=== PATIENT | female | born 1995 | race Caucasian/White ===

== ENCOUNTER 2017-06-25 06:08 | Inpatient (IN) ==
[2017-06-25] MEDS ORDERED: MEPERIDINE 50 MG/1 ML VIAL IV PRN (06:18)
[2017-06-25] MEDS ORDERED: ONDANSETRON 4 MG/2 ML VIAL IV PRN (06:18)
[2017-06-25] MEDS ORDERED: LACTATED RINGERS 1,000 ML IV PRN (06:18)
[2017-06-25] MEDS ORDERED: OXYTOCIN/LR 20 UNIT/1,000 ML BAG IV SCH (06:30)
[2017-06-25 06:50] LABS: Basophils % 0.3 % (0.0-0.8); Eosinophils # 0.1 10*3/uL (0.0-0.87); Eosinophils % 0.9 % (0.00-10.9); Hematocrit 39.2 VOL% (35.7-47.0); Hemoglobin 13.5 GM/DL (12.0-16.0); Immature Granulocytes % 0.8 %; Immature Granulocytes Absolute 0.11 #; Lymphocytes # 2.5 10*3/uL (1.4-4.0); Mean Corpuscular HGB Conc 34.4 GM/DL (32-36); Mean Corpuscular Hemoglobin 30 PG (27-34); Mean Corpuscular Volume 87.1 FL (87-102); Mean Platelet Volume 10.9 FL (9.6-12.0); Monocytes # 0.6 10*3/uL (0.11-0.8); Monocytes % 4.5 % (1.7-12.7); Neutrophils # 10.4 10*3/uL (1.4-7.4); Neutrophils % 75.5 % (38.7-73.9); Platelet Count 235 T/CUMM (130-400); Red Cell Distribution Width 13.5 % (9.3-17.3); White Blood Count 13.8 T/CUMM (4-12)
[2017-06-25 07:18] LABS: Alanine Aminotransferase 11 U/L (13-56); Albumin 2.6 G/DL (3.4-5.0); Alkaline Phosphatase 134 U/L (45-117); Aspartate Amino Transferase 7 U/L (0-37); Bilirubin,Total < 0.39 MG/DL (0.2-1.0); Calcium 8.8 MG/DL (8.5-10.1); Total Protein 6.2 G/DL (6.4-8.3)
[2017-06-25 07:19] LABS: Blood Urea Nitrogen 8 MG/DL (7-18); Glucose 115 MG/DL (74-106); Osmolality,Calculated 271.8 MOS/KG (273-304); Sodium 137 MMOL/L (136-145); Uric Acid 3.5 MG/DL (2.6-6.0)
[2017-06-25] MEDS ORDERED: diphenhydrAMINE 50 MG/1 ML VIAL IV PRN (07:30)
[2017-06-25] MEDS ORDERED: FAMOTIDINE 20 MG/2 ML VIAL IV ONE (07:30)
[2017-06-25] MEDS ORDERED: CITRIC ACID/SODIUM CITRATE 30 ML UDCUP PO ONE (07:30)
[2017-06-25] MEDS ORDERED: fentaNYL 2 MCG/ROPIV 0.2% EPID 150 ML EPIDURAL SCH (07:30)
[2017-06-25] MEDS ORDERED: hydrOXYzine HCL 25 MG/1 ML VIAL IM PRN (07:30)
[2017-06-25] MEDS ORDERED: ePHEDrine 50 MG/ML AMP IV PRN (07:30)
[2017-06-25] MEDS ORDERED: PROMETHAZINE 25 MG/1 ML VIAL IM ONE (07:30)
[2017-06-25] MEDS ORDERED: AMPICILLIN INJ 2,000 MG in SODIUM CHLORIDE 0.9% 100 ML IV ONE (07:59)
[2017-06-25] MEDS: LACTATED RINGERS 1,000 ML IV SCH (09:24)
--- NOTE | 2017-06-25 09:37 | OB/GYN History & Physical ---
History of Present Illness Chief complaint: In for elective induction of labor due to term . History of present illness: Ms. Garsia is a 22 year old female who is a 2 para 1 living 1. Her LIZABETH is [birth year]2017 for an estimated gestational age of 39 weeks and 1 day. The patient presents for elective induction of labor due to term . The risk and benefits of been thoroughly discussed with this patient and significant other, plan of care has been discussed with Dr. Rolle, all parties are in agreement plan. The patient received her care at the [facility] and she received routine care, her course was uneventful. She had a previous vaginal delivery of a liveborn infant that weighed 7 pounds and 13 ounces and she reported no complications with that . labs: She is O-, she did receive RhoGam, rubella is immune, hepatitis B negative, HIV negative, RPR is nonreactive, and GBS culture status unknown. Review of systems is negative with exception of above. Home Medications Medication Instructions Recorded Confirmed Type No122/Iron/Folic Acid 1 tablet PO DAILY 04/30/16 06/25/17 History [ Multi Tablet] Allergies Allergy/AdvReac Type Severity Reaction Status Date / Time No Known Allergies Allergy Verified 06/10/17 12:52 12 point system: reviewed and no additional remarkable complaints except as stated Medical,Surgical,& Family Hx - Medical History Medical History: noncontributory Musculoskeletal: No history of: Amputation Reproductive: No history of: Ectopic , Complication - Surgical History Surgical History: noncontributory HEENT Surgeries: Patient denies: Eye Surgery, Tonsilectomy & Adenoidectomy - Family History Family History: Reports;: Family Hypertension (mother), Family Stroke (MGF) Denies;: Family Anesthesia Reaction, Family Cancer, Family Diabetes, Family Heart Disease, Family Psychiatric Problems - Social History Smoking Status: Never smoker Frequency of Alcohol Use: None Type of Drug Use: None Marital Status: Single Lives With:: Significant Other Functional capacity: independent ambulation Exam PACKAGING ASSEMBLER - Constitutional General appearance: no acute distress - Antepartum / Post Antepartum Exam Cervix - Dilatation: 4 cm Effacement: 70% Station: -2 Rupture: Intact Presentation: Vertex Heart Rate: 140s Breast: bilateral: normal Abdomen obstetrics: Present: bowel sounds normal Vulva: bilateral: normal Vagina: Present: normal moisture, discharge Uterus exam: Present: enlarged Anus/Rectum: Present: normal perianal skin - Respiratory Respiratory exam: Present: clear to auscultation bilaterally - Cardiovascular Cardiovascular exam: Present: regular rate and rhythm - GI/Abdominal GI/Abdominal exam: Present: normal bowel sounds, soft - Extremities Exam Extremities exam: Present: normal inspection - Back Exam Back exam: Present: normal inspection - Neurological Exam Neurological exam: Present: alert, oriented X3 - Psychiatric Psychiatric exam: Present: normal affect, normal mood - Skin Skin exam: Present: normal color, warm Assessment and Plan (1) 39 weeks gestation of Status: Acute Assessment and plan: Admit IV fluids IV Pitocin per protocol Artificial rupture membranes when appropriate Internal monitors if indicated Epidural anesthesia if desired IV antibiotics prophylactically for unknown GBS status Anticipate Current Visit: Yes Results - Labs CBC & BMP: 06/25/17 06:36 06/25/17 06:36
[2017-06-25] MEDS ORDERED: LIDOCAINE 1% 50 ML VIAL ONE (15:26)
[2017-06-25] MEDS ORDERED: miSOPROStol 200 MCG TABLET ONE (15:26)
--- NOTE | 2017-06-25 16:16 | Event Note ---
HPI: Ms. Garsia presented to the labor department for elective induction of labor due to term . The risk and benefits were thoroughly discussed with the patient and significant other, plan of care discussed with Dr. Rolle and all parties were in agreement plan. Stage I: The patient was admitted she received IV fluids and IV Pitocin per protocol. Artificial rupture membranes was performed with clear fluid noted. An FSE was inserted for monitoring. The patient had a CAT 1 tracing with a few episodes of a CAT 2 tracing which was correct with oxygenation and position change. She received an epidural for pain control. Otherwise she had an uneventful course of labor. Stage II: The patient was complete and complained of pressure and desire to push. She pushed for approximately 15 minutes after which time the infant's head was delivered. The mouth nose suctioned on the perineum and nuchal cord 1 was noted and reduced. The remainder the infant was delivered at 1542, a viable female was noted. Apgars were 9 at 1 minute and 9 at 5 minutes. weight was 7 pounds. The infant was placed on the mom's abdomen for skin to skin bonding. A cord pH was obtained and sent to the lab. Stage III: A spontaneous delivery of a Marie placenta 1545. The placenta was further examined and appeared to be grossly intact. The vagina cervix inspected with no tears or lacerations noted. Estimated blood loss was approximately 150 cc. At the time of dictation mother and baby are in stable condition.
[2017-06-25] MEDS ORDERED: BENZOCAINE 20%/MENTHOL 0.5% SPRAY 56 GM CAN TOP PRN (18:10)
[2017-06-25] MEDS ORDERED: MEASLES/MUMPS/RUBELLA VACCINE 0.5 ML VIAL SUBCUT ONE (18:10)
[2017-06-25] MEDS ORDERED: DIPH/TET/ACEL PERT BOOSTER VACCINE 0.5 ML VIAL IM ONE (18:10)
[2017-06-25] MEDS ORDERED: LANOLIN 50% CREAM 0.3 OZ TUBE TOP PRN (18:10)
[2017-06-25] MEDS ORDERED: BISACODYL 10 MG SUPP RECTAL PRN (18:10)
[2017-06-25] MEDS ORDERED: oxyCODONE/ACETAMINOPHEN 5-325 MG TABLET PO PRN (18:10)
[2017-06-25] MEDS ORDERED: RHO(D) IMMUNE GLOBULIN 300 MCG SYRINGE IM ONE (18:10)
[2017-06-25] MEDS ORDERED: WITCH HAZEL PADS 100/JAR TOP PRN (18:10)
[2017-06-25] MEDS ORDERED: HYDROCORTISONE 2.5% RECTAL CREAM 30 GM TUBE TOP PRN (18:10)
[2017-06-25] MEDS ORDERED: ACETAMINOPHEN 325 MG TABLET PO PRN (18:10)
[2017-06-25] MEDS: IBUPROFEN 800 MG TABLET PO PRN (18:36)
--- NOTE | 2017-06-25 18:51 | Anesthesia Post-Op ---
Anesthesia Post OP - Post Ansesthetic Evaluation Patient seen in post op: Yes Resp: within normal limits CV: within normal limits Mental: within normal limits Temp: within normal limits [id number]: within normal limits Nausea and Vomiting: within normal limits Pain: within normal limits
[2017-06-25] MEDS: DOCUSATE SODIUM 100 MG CAPSULE PO SCH (21:45)
[2017-06-26] MEDS: IBUPROFEN 800 MG TABLET PO PRN ×2 (01:29→17:18)
[2017-06-26] MEDS: ACETAMINOPHEN/CODEINE 300-30 MG TABLET PO PRN (05:16)
[2017-06-26 06:49] LABS: Basophils # 0.1 10*3/uL (0.0-0.2); Basophils % 0.4 % (0.0-0.8); Eosinophils # 0.2 10*3/uL (0.0-0.87); Eosinophils % 1.2 % (0.00-10.9); Hematocrit 35.1 VOL% (35.7-47.0); Hemoglobin 12.4 GM/DL (12.0-16.0); Immature Granulocytes % 0.6 %; Immature Granulocytes Absolute 0.08 #; Lymphocytes # 2.6 10*3/uL (1.4-4.0); Lymphocytes % 19.1 % (21.3-54.2); Mean Corpuscular HGB Conc 35.3 GM/DL (32-36); Mean Corpuscular Hemoglobin 31 PG (27-34); Mean Platelet Volume 10.9 FL (9.6-12.0); Monocytes % 7.1 % (1.7-12.7); Neutrophils # 9.8 10*3/uL (1.4-7.4); Neutrophils % 71.6 % (38.7-73.9); Platelet Count 204 T/CUMM (130-400); Red Blood Count 3.99 MC/CUMM (3.8-5.5); Red Cell Distribution Width 13.7 % (9.3-17.3); White Blood Count 13.7 T/CUMM (4-12)
[2017-06-26] MEDS: DOCUSATE SODIUM 100 MG CAPSULE PO SCH ×2 (08:58→20:43)
--- NOTE | 2017-06-26 09:38 | OB/GYN Progress Note ---
Assessment and Plan (1) 39 weeks gestation of Status: Acute Assessment and plan: Admit IV fluids IV Pitocin per protocol Artificial rupture membranes when appropriate Internal monitors if indicated Epidural anesthesia if desired IV antibiotics prophylactically for unknown GBS status Anticipate Current Visit: Yes (2) Vaginal delivery Status: Acute Assessment and plan: Initiate routine orders. 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 Bonding well with infant. 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 Vitals: Vital Signs Temp Pulse Resp BP Pulse Ox 06/26/17 07:23 96.5 F L 72 18 119/82 97 06/26/17 06:46 20 06/26/17 06:00 20 06/26/17 04:00 97.2 F L 76 18 134/97 99 06/26/17 03:00 20 06/26/17 02:00 20 06/26/17 01:00 20 06/26/17 00:00 97.3 F L 77 18 124/75 100 06/25/17 22:00 20 06/25/17 20:00 98.3 F 81 18 145/92 99 06/25/17 18:15 97.2 F L 88 20 142/80 99 General appearance: no acute distress - Antepartum / Post Post Exam Breast: bilateral: normal Abdomen obstetrics: Present: bowel sounds normal Vagina: Present: normal moisture, discharge (Light lochia rubra) Uterus exam: Present: enlarged (Fundus firm midline) Anus/Rectum: Present: normal perianal skin - Head Head exam: Present: normal inspection - Respiratory Respiratory exam: Present: clear to auscultation bilaterally - Cardiovascular Cardiovascular exam: Present: regular rate and rhythm - GI/Abdominal GI/Abdominal exam: Present: normal bowel sounds, soft - Extremities Exam Extremities exam: Present: normal inspection - Neurological Exam Neurological exam: Present: alert, oriented X3 - Psychiatric Psychiatric exam: Present: normal affect, normal mood - Skin Skin exam: Present: normal color, warm Results - Labs CBC & BMP: 06/26/17 06:40 06/25/17 06:36
[2017-06-26] MEDS: oxyCODONE/ACETAMINOPHEN 5-325 MG TABLET PO PRN (17:18)
[2017-06-26] MEDS: LACTATED RINGERS 1,000 ML IV SCH (20:52)
[2017-06-27] MEDS: oxyCODONE/ACETAMINOPHEN 5-325 MG TABLET PO PRN (02:00)
[2017-06-27] MEDS: IBUPROFEN 800 MG TABLET PO PRN ×2 (02:02→10:23)
[2017-06-27] MEDS: DOCUSATE SODIUM 100 MG CAPSULE PO SCH (08:23)
[2017-06-27 08:37] VITALS: BP 128/74
[2017-06-27] MEDS: ACETAMINOPHEN/CODEINE 300-30 MG TABLET PO PRN (10:23)
--- NOTE | 2017-06-27 11:11 | Discharge Summary ---
Hospital Course - Hospital Course Hospital Course: Status post vaginal . Patient had 2 days in the hospital without any complications. Mother stable. Physical exam is unremarkable abdomen soft uterus is nontender firm, extremities are well within normal limits. Patient will be discharged follow-up our office approximately 6 weeks Specialty Discharge - Follow Up or Referrals Follow up with: Princess Rolle MD [Physician] - 07/31/17 10:00 am Discharge Plan - Discharge Data Condition at Discharge: Stable Discharge Diet: advance to your usual diet Activity: resume usual activities as tolerated Hygiene: may shower Weight Bearing at Discharge: weight bear as tolerated Driving: no restrictions Contact your physician if you experience:: fever over 101, Bleeding - Discharge Medications New Ibuprofen Tab [Motrin Tab] 800 mg PO Q6H PRN #30 tablet PRN Reason: Pain Moderate (4-7) Acetamin/Codeine 300-30 Tab [Tylenol/Codeine #3] 2 tablet PO Q4H PRN #30 tablet PRN Reason: Pain Mild (1-3) No Action No122/Iron/Folic Acid [ Multi Tablet] 1 tablet PO DAILY - Follow Up or Referral Follow Up: Princess Rolle MD [Physician] - 07/31/17 10:00 am - Forms/Instructions Instructions: Perineal Care (DC), Vaginal Delivery (DC), Bleeding (DC) Exam - Constitutional Vitals: Period Temp Pulse Resp BP Sys/Mccoy Pulse Ox Last 24 Hr 96.5 F-98.7 F 72-84 18-20 121-157/58-91 97-100 DS: Provider Date of admission: 06/25/17 06:42 Primary care physician: . No PCP Attending physician on admission: Princess Rolle MD Consults: 06/25/17 06:18 Consult to Anesthesiology [CONS] Routine Consulting Provider: Reason for Anesthesiology: Epidural Consult Comment: Epidural for pain managment 06/25/17 18:10 Consult to Supervisor [employer]ing [employer] Stamping [CONS] Routine Consult Supervisor [employer]ing [employer]amping: Breast Feeding Discharging clinician: Princess Rolle MD
== END 2017-06-27 12:00 | disposition home or self-care (01) | DRG 775 ==
LOC: N.LDOUT 06:08 → N.LD 06:08 → N.OB 18:12
PROVIDERS: ADMIT Obstetrics & Gynecology; ATTEND Obstetrics & Gynecology

== ENCOUNTER 2019-10-07 05:51 | Inpatient (IN) ==
[2019-10-07] MEDS ORDERED: ONDANSETRON 4 MG/2 ML VIAL IV PRN ×2 (06:05→17:56)
[2019-10-07] MEDS ORDERED: MEPERIDINE 50 MG/1 ML VIAL IV PRN (06:05)
[2019-10-07 06:27] LABS: Basophils % 0.3 % (0.0-0.8); Eosinophils # 0.1 10*3/uL (0.0-0.87); Eosinophils % 0.9 % (0.00-10.9); Hematocrit 40.9 VOL% (35.7-47.0); Hemoglobin 13.5 GM/DL (12.0-16.0); Immature Granulocytes % 0.7 %; Immature Granulocytes Absolute 0.08 #; Lymphocytes # 2.4 10*3/uL (1.4-4.0); Lymphocytes % 21.1 % (21.3-54.2); Mean Corpuscular Volume 87.6 FL (87-102); Mean Platelet Volume 10.6 FL (9.6-12.0); Monocytes % 4.7 % (1.7-12.7); Neutrophils % 72.3 % (38.7-73.9); Platelet Count 236 T/CUMM (130-400); Red Blood Count 4.67 MC/CUMM (3.8-5.5); Red Cell Distribution Width 13.9 % (9.3-17.3); White Blood Count 11.6 T/CUMM (4-12)
[2019-10-07] MEDS ORDERED: OXYTOCIN/LR 20 UNIT/1,000 ML BAG IV SCH (06:30)
[2019-10-07] MEDS: LACTATED RINGERS 1,000 ML IV SCH ×2 (06:35→13:24)
[2019-10-07 06:52] LABS: Alanine Aminotransferase 12 U/L (13-56); Albumin 2.5 G/DL (3.4-5.0); Alkaline Phosphatase 157 U/L (45-117); Aspartate Amino Transferase 7 U/L (0-37); Bilirubin,Total < 0.39 MG/DL (0.2-1.0); Blood Urea Nitrogen 8 MG/DL (7-18); Calcium 8.5 MG/DL (8.5-10.1); Estimated Glom Filtration Rate 171 ML/MIN; Glucose 123 MG/DL (74-106); Osmolality,Calculated 271.8 MOS/KG (273-304); Total Protein 6.5 G/DL (6.4-8.3)
[2019-10-07] MEDS ORDERED: ePHEDrine 50 MG/ML AMP IV PRN (08:45)
[2019-10-07] MEDS ORDERED: CITRIC ACID/SODIUM CITRATE 30 ML UDCUP PO ONE (08:45)
[2019-10-07] MEDS ORDERED: LACTATED RINGERS 1,000 ML IV ONE (08:45)
[2019-10-07] MEDS ORDERED: FAMOTIDINE 20 MG/2 ML VIAL IV ONE (08:45)
[2019-10-07] MEDS ORDERED: PROMETHAZINE 25 MG/1 ML VIAL IM ONE (08:46)
[2019-10-07] MEDS ORDERED: hydrOXYzine HCL 25 MG/1 ML VIAL IM PRN (08:46)
[2019-10-07] MEDS ORDERED: NALOXONE 0.4 MG/ML VIAL IV PRN (08:46)
[2019-10-07] MEDS ORDERED: diphenhydrAMINE 50 MG/1 ML VIAL IV PRN ×2 (08:46)
[2019-10-07] MEDS ORDERED: LACTATED RINGERS 250 ML IV PRN (08:46)
[2019-10-07] MEDS ORDERED: LACTATED RINGERS 1,000 ML IV SCH (09:00)
[2019-10-07] MEDS ORDERED: fentaNYL 2 MCG/ROPIV 0.2% EPID 100 ML EPIDURAL SCH (09:00)
[2019-10-07 12:00] LABS: Apearance,Urine CLEAR (Clear); Bacteria,Urine Occasional /HPF (Few); Bilirubin,Urine Negative (Negative); Blood, Urine Negative (Negative); Glucose,Urine (UA) Negative (Negative); Ketones,Urine Negative (Negative); Mucus,Urine Occasional /LPF (Occasional); Nitrite,Urine Negative (Negative); Protein,Urine Negative; RBC,Urine 1 /HPF (0-4); Squamous Epithelial Cell,Urine Occasional /HPF (0-10); Urine Color Yellow (Yellow); Urine Specific Gravity 1.014 (1.001-1.035); Urine Urobilinogen < 2.0 EU/DL (0.2-1.0); WBC,Urine <1 /HPF (0-6)
[2019-10-07] MEDS ORDERED: OXYTOCIN/LR 30 UNIT/1,000 ML BAG IV ONE (16:41)
[2019-10-07] MEDS ORDERED: LIDOCAINE 1% 50 ML VIAL ONE (16:46)
[2019-10-07] MEDS ORDERED: miSOPROStoL 200 MCG TABLET ONE (16:46)
[2019-10-07] MEDS ORDERED: METHYLERGONOVINE 0.2 MG/1 ML AMP ONE (16:46)
[2019-10-07] MEDS ORDERED: BENZOCAINE 20%/MENTHOL 0.5% SPRAY 56 GM CAN TOP PRN (17:56)
[2019-10-07] MEDS ORDERED: MEASLES/MUMPS/RUBELLA VACCINE 0.5 ML VIAL SUBCUT ONE (17:56)
[2019-10-07] MEDS ORDERED: RHO(D) IMMUNE GLOBULIN 300 MCG SYRINGE IM ONE (17:56)
[2019-10-07] MEDS ORDERED: LANOLIN 50% CREAM 0.3 OZ TUBE TOP PRN (17:56)
[2019-10-07] MEDS ORDERED: HYDROCORTISONE 2.5% RECTAL CREAM 30 GM TUBE TOP PRN (17:56)
[2019-10-07] MEDS ORDERED: ACETAMINOPHEN 325 MG TABLET PO PRN (17:56)
[2019-10-07] MEDS ORDERED: BISACODYL 10 MG SUPP RECTAL PRN (17:56)
[2019-10-07] MEDS ORDERED: DIPH/TET/ACEL PERT BOOSTER VACCINE 0.5 ML VIAL IM ONE (17:56)
[2019-10-07] MEDS ORDERED: WITCH HAZEL PADS 100/JAR TOP PRN (17:56)
[2019-10-07] MEDS ORDERED: OXYTOCIN/LR 20 UNIT/1,000 ML BAG IV ONE (17:56)
[2019-10-07 18:18] LABS: Cord Venous Blood HCO3 23.2 MMOL/L; Cord Venous Blood PCO2 35.2 MMHG; Cord Venous Blood PO2 32.3
[2019-10-07] MEDS: IBUPROFEN 800 MG TABLET PO PRN (19:00)
[2019-10-07] MEDS: oxyCODONE/ACETAMINOPHEN 5-325 MG TABLET PO PRN (20:31)
[2019-10-08] MEDS: DOCUSATE SODIUM 100 MG CAPSULE PO SCH ×3 (02:54→21:54)
[2019-10-08] MEDS: oxyCODONE/ACETAMINOPHEN 5-325 MG TABLET PO PRN ×3 (03:12→18:20)
[2019-10-08 06:13] LABS: Basophils % 0.3 % (0.0-0.8); Eosinophils # 0.2 10*3/uL (0.0-0.87); Eosinophils % 1.3 % (0.00-10.9); Hematocrit 34.9 VOL% (35.7-47.0); Hemoglobin 11.7 GM/DL (12.0-16.0); Immature Granulocytes % 0.7 %; Immature Granulocytes Absolute 0.09 #; Lymphocytes # 2.5 10*3/uL (1.4-4.0); Lymphocytes % 18.5 % (21.3-54.2); Mean Corpuscular HGB Conc 33.5 GM/DL (32-36); Mean Corpuscular Volume 87.9 FL (87-102); Mean Platelet Volume 10.9 FL (9.6-12.0); Monocytes % 4.5 % (1.7-12.7); Neutrophils % 74.7 % (38.7-73.9); Platelet Count 203 T/CUMM (130-400); Red Blood Count 3.97 MC/CUMM (3.8-5.5); Red Cell Distribution Width 13.7 % (9.3-17.3); White Blood Count 13.5 T/CUMM (4-12)
[2019-10-08] MEDS: IBUPROFEN 800 MG TABLET PO PRN ×2 (08:01→21:54)
[2019-10-09] MEDS: oxyCODONE/ACETAMINOPHEN 5-325 MG TABLET PO PRN (05:02)
[2019-10-09] MEDS: DOCUSATE SODIUM 100 MG CAPSULE PO SCH (08:04)
[2019-10-09] MEDS: IBUPROFEN 800 MG TABLET PO PRN (10:12)
[2019-10-09 11:40] VITALS: BP 133/83
== END 2019-10-09 13:00 | disposition home or self-care (01) | DRG 807 ==
LOC: N.LDOUT 05:51 → N.LD 05:52 → N.OB 21:40
PROVIDERS: ADMIT Obstetrics & Gynecology; ATTEND Obstetrics & Gynecology